=== PATIENT | male | born 1965 | race Two or more races ===

== ENCOUNTER 2017-10-02 11:03 | Outpatient (CLI) | payer OTHER ==
[~2017-10-02 11:03] MED LIST: ACETAMINOPHEN-1 EAC2 PO; BUTALB-ACETAMI1 EACH; DEPAKOTE ER500 MG; FLAGYL375 MG; FOLIC ACID0.4 MG; HUMIRA40 MG/0.1; OSEL75CA PO; Q-PAP EXTRA ST500 MG; SYNTHROID200 MCG; SYNTHROID50 MCG; VITAMIN B-121000 MCG; ZYRTEC10 MG
== END 2017-10-02 15:00 | disposition home or self-care (01) ==
LOC: MRI 11:03
DX: M17.0 Bilateral primary osteoarthritis of knee (principal)
CPT/HCPCS: 73721

== ENCOUNTER 2017-11-03 12:16 | Outpatient (CLI) | payer OTHER | END 2017-11-03 13:00 | disposition home or self-care (01) | LOC: NUCLEAR 12:16 | DX: I70.211 Atherosclerosis of native arteries of extremities with intermittent claudication, right leg (principal); I70.212 Atherosclerosis of native arteries of extremities with intermittent claudication, left leg ==

== ENCOUNTER 2017-11-04 11:47 | Outpatient (CLI) | payer OTHER | END 2017-11-04 12:30 | disposition home or self-care (01) | LOC: NUCLEAR 11:47 | DX: I73.9 Peripheral vascular disease, unspecified (principal); I87.2 Venous insufficiency (chronic) (peripheral) ==

== ENCOUNTER 2017-11-13 09:33 | Outpatient (CLI) | payer OTHER | END 2017-11-13 09:44 | disposition home or self-care (01) | LOC: TOM 09:33 | DX: K50.00 Crohn's disease of small intestine without complications (principal) | CPT/HCPCS: 74178; Q9965 ==

== ENCOUNTER → 2018-04-02 | Outpatient (CLI) | payer OTHER | END | disposition home or self-care (01) | LOC: MAMO-SONO 10:15 → SONOGRAMA 11:48 → MAMO-SONO 04-08 10:15 | DX: C73 Malignant neoplasm of thyroid gland (principal) ==

== ENCOUNTER 2018-04-20 14:16 | Outpatient (CLI) | payer OTHER | END 2018-04-20 14:27 | disposition home or self-care (01) | LOC: RAD 14:16 | DX: M21.41 Flat foot [pes planus] (acquired), right foot (principal); M21.42 Flat foot [pes planus] (acquired), left foot ==

== ENCOUNTER 2019-04-14 13:42 | Outpatient (CLI) | payer OTHER | END 2019-04-14 13:51 | disposition home or self-care (01) | LOC: SONOGRAMA 13:42 | DX: C73 Malignant neoplasm of thyroid gland (principal) ==

== ENCOUNTER → 2020-08-21 | Outpatient (CLI) | payer OTHER | END | disposition home or self-care (01) | LOC: RAD 11:47 | PROVIDERS: ATTEND Internal Medicine Gastroenterology | DX: R05 Cough (principal) ==

== ENCOUNTER 2020-12-06 06:25 | Day surgery (SDC) | payer OTHER | END 2020-12-06 10:55 | disposition home or self-care (01) | LOC: CIR.AMB 06:25 | PROVIDERS: ATTEND Internal Medicine Gastroenterology | DX: K62.4 Stenosis of anus and rectum (principal); Z20.822 Contact with and (suspected) exposure to COVID-19 ==

== ENCOUNTER 2021-03-14 08:00 | Outpatient (CLI) | payer OTHER | END 2021-03-14 08:30 | disposition home or self-care (01) | LOC: PPH VACUNA 08:00 | DX: Z23 Encounter for immunization (principal) ==

== ENCOUNTER 2021-04-04 07:00 | Outpatient (CLI) | payer OTHER | END 2021-04-04 07:05 | disposition home or self-care (01) | LOC: PPH VACUNA 07:00 | PROVIDERS: ATTEND Emergency Medicine Pediatric Emergency Medicine | DX: Z23 Encounter for immunization (principal) ==

== ENCOUNTER → 2021-06-11 | Outpatient (CLI) | payer OTHER | END | disposition home or self-care (01) | LOC: SONOGRAMA 12:49 | PROVIDERS: ATTEND Internal Medicine Sports Medicine | DX: C73 Malignant neoplasm of thyroid gland (principal) ==

== ENCOUNTER 2021-08-20 14:47 | Outpatient (CLI) | payer OTHER | END 2021-08-20 14:51 | disposition home or self-care (01) | LOC: RAD 14:47 | PROVIDERS: ATTEND Internal Medicine Hematology & Oncology | DX: I10 Essential (primary) hypertension (principal) ==

== ENCOUNTER 2021-10-03 08:00 | Outpatient (CLI) | payer OTHER | END 2021-10-03 08:30 | disposition home or self-care (01) | LOC: PPH VACUNA 08:00 | PROVIDERS: ATTEND Emergency Medicine Pediatric Emergency Medicine | DX: Z23 Encounter for immunization (principal) ==

== ENCOUNTER 2022-11-05 06:48 | Day surgery (SDC) | payer OTHER | END 2022-11-05 11:25 | disposition home or self-care (01) | LOC: AMB-ENDOS 06:48 → CIR.AMB 06:48 → AMB-ENDOS 11:25 → CIR.AMB 14:00 | PROVIDERS: ATTEND Internal Medicine Gastroenterology | DX: K50.011 Crohn's disease of small intestine with rectal bleeding (principal); K50.013 Crohn's disease of small intestine with fistula; K52.89 Other specified noninfective gastroenteritis and colitis; K62.5 Hemorrhage of anus and rectum; Z88.6 Allergy status to analgesic agent ==

== ENCOUNTER 2023-06-16 14:39 | Outpatient (CLI) | payer OTHER | END 2023-06-16 14:44 | disposition home or self-care (01) | LOC: RAD 14:39 | PROVIDERS: ATTEND Psychiatry & Neurology Clinical Neurophysiology | DX: S82.002A Unspecified fracture of left patella, initial encounter for closed fracture (principal); Z88.6 Allergy status to analgesic agent ==

== ENCOUNTER 2024-01-16 14:35 | Inpatient (IN) | payer OTHER ==
[~2024-01-16] VITALS: Ht 175.3 cm; Wt 65.8 kg
[~2024-01-16 14:35] MED LIST changes: +INTEGRA PLUS C1 EACH PO; +PREDNISONE10 M2 PO; +TRAM1TAB98 PO; +VITAMIN B-121000 MC2 SL
--- NOTE | 2024-01-16 14:42 | NUR ---
SE RECIBE PACIENTE ALERTA Y ORIENTADO X3 EN COMPANIA DE FAMILIAR LA CUAL REFIERE QUE VIENE CON PTE A CAUSA DE QUE MAHER ESTADO PRESENTANDO EDEMA EN EXTREMDADES INFERIORES Y ENROJECIMIENTO EN RODILAS.
[2024-01-16] MEDS ORDERED: CEFTRIAXONE SODIUM 1,000 MG VIAL IV ONE (16:30)
[2024-01-16] MEDS ORDERED: 0.9 % SODIUM CHLORIDE 1,000 ML IV SCH ×2 (16:30→19:45)
--- NOTE | 2024-01-16 16:38 | NUR ---
PTE EVALUADO POR DR. OWENS QUIEN [place] MEDICO. GARY STYLES ORIENTA A PTE SOBRE EL MISMO, GODFREY REFIERE ENTENDER. SE COLECTAN MUESTRAS DE LAB Y SE CANALIZA BAJO MEDIDAS ASEPTICAS COL[place] H/L. SE COLOCAN IV FLUIDS Y SE ADMINISTRAN MEDICAMENTOS LEVI ORDEN MEDICA.
[2024-01-16 17:40] LABS: ERYTHROCYTE SEDIMENTATION RATE > 130 mm/hr
[2024-01-16 17:41] LABS: HEMATOCRIT 29.3 % (39.0-48.0); HEMOGLOBIN 9.3 g/dL (13-16.00); MEAN CELL VOLUME 86.4 fL (80.0-100.00); MEAN CORPUSCULAR HEMOGLOBIN 27.4 pg (27.00-32.0); MEAN CORPUSCULAR HGB CONC 31.7 g/dl (32.0-36.0); PLATELET COUNT 576 K/uL (150-450); RED BLOOD COUNT 3.39 M/uL (4.00-6.00)
[2024-01-16 17:59] LABS: ALBUMIN 2.3 gm/dL (3.4-5.0); BILIRUBIN TOTAL 0.28 mg/dL (0.3-1.2); CREATININE SERUM 0.65 mg/dL (0.70-1.30); GFR 126.17; GLOBULINA 5.1 G/DL (2.4-3.5); POTASSIUM 3.84 mEq/L (3.5-5.1); TOTAL PROTEIN 7.4 gm/dL (6.4-8.2)
[2024-01-16 18:00] LABS: C-REACTIVE PROTEIN 12.5 MG/DL (0.00-0.29)
[2024-01-16] MEDS ORDERED: VANCOMYCIN HCL 1,000 MG VIAL IV SCH (19:53)
[2024-01-16] MEDS ORDERED: GABAPENTIN 400 MG CAPSULE PO SCH (19:59)
[2024-01-16] MEDS ORDERED: DIVALPROEX SODIUM 500 MG TABLET.DR PO SCH (19:59)
[2024-01-16] MEDS ORDERED: ACETAMINOPHEN 500 MG GEL..CAP PO PRN (20:00)
[2024-01-16] MEDS ORDERED: ONDANSETRON HCL 4 MG in 0.9 % SODIUM CHLORIDE 50 ML IV PRN (20:00)
[2024-01-16] MEDS ORDERED: RINGERS SOLUTION,LACTATED 1,000 ML IV STA (21:01)
[2024-01-16 21:51] LABS: INR 1.09; PARTIAL THROMBOPLASTIN TIME 32.7 SECONDS (22.0-34.0); PROTHROMBIN TIME 11.4 SECONDS (9.0-11.5)
[2024-01-16 23:16] LABS: URINE APPEARANCE Clear; URINE BILIRRUBIN Negative (NEGATIVE); URINE BLOOD Negative; URINE COLOR Yellow; URINE GLUCOSE Negative (NEGATIVE); URINE LEUKOCYTE Negative; URINE NITRATE Negative; URINE PROTEIN Negative (NEGATIVE)
[2024-01-16 23:19] LABS: URINE WBC 3.3 uL (0.0-23.2)
[2024-01-16 23:20] LABS: URINE BACTERIA 1.2 uL (0.0-1933); URINE EPITHELIAL CELLS 1.3 uL (0.0-38.8)
[2024-01-17] MEDS ORDERED: LEVOTHYROXINE SODIUM 175 MCG TABLET PO SCH (06:00)
[2024-01-17] MEDS ORDERED: IRON FUM,PS/FOLIC/BCOMP,C NO.9 1 CAP CAPSULE PO SCH (09:00)
[2024-01-17] MEDS ORDERED: CEFTRIAXONE SODIUM 2,000 MG in 0.9 % SODIUM CHLORIDE 100 ML IV SCH (09:00)
[2024-01-17] MEDS ORDERED: PANTOPRAZOLE SODIUM 40 MG/VIAL VIAL IV SCH (09:00)
[2024-01-17] MEDS ORDERED: ENOXAPARIN SODIUM 40 MG/0.4 ML SYRINGE SUBCUTANEO SCH (09:00)
[2024-01-17] MEDS ORDERED: AMINO ACIDS 1 EACH TABLET PO SCH (09:00)
[2024-01-19 08:41] LABS: HEMATOCRIT 24.4 % (39.0-48.0); MEAN CELL VOLUME 84.9 fL (80.0-100.00); MEAN CORPUSCULAR HGB CONC 31.8 g/dl (32.0-36.0); PLATELET COUNT 426 K/uL (150-450); RED BLOOD COUNT 2.88 M/uL (4.00-6.00); RED CELL DISTRIBUTION WIDTH 17.2 % (11.5-14.5)
[2024-01-19 09:02] LABS: ALBUMIN 1.8 gm/dL (3.4-5.0); BILIRUBIN TOTAL 0.22 mg/dL (0.3-1.2); CALCIUM 8.1 mg/dL (8.5-10.1); CREATININE SERUM 0.51 mg/dL (0.70-1.30); GFR 166.92; GLOBULINA 3.5 G/DL (2.4-3.5); MAGNESIUM 1.9 mg/dL (1.8-2.4); PHOSPHOROUS 3.4 mg/dL (2.5-4.9); POTASSIUM 3.8 mEq/L (3.5-5.1); TOTAL PROTEIN 5.3 gm/dL (6.4-8.2)
[2024-01-19 11:40] LABS: HEMOGLOBIN 7.8 g/dL (13-16.00)
[2024-01-19] MEDS ORDERED: FUROsemide 20 MG/2 ML VIAL IV PRN (12:30)
[2024-01-19] MEDS ORDERED: Cyanocobalamin/Mecobalamin 1 TAB.SL SL SCH (17:00)
[2024-01-19] MEDS ORDERED: METHYLPREDNISOLONE SOD SUCC 40 MG VIAL IV SCH (21:00)
[2024-01-20 02:51] LABS: FECAL LEUKOCYTES POSITIVE (NEGATIVE)
[2024-01-20] MEDS ORDERED: DIATRIZOATE MEGLUMINE, SODIUM 30 ML BOTTLE PO NR (07:15)
[2024-01-20] MEDS ORDERED: SOD FERRIC GLUC COMPLX/SUCROSE 62.5 MG in 0.9 % SODIUM CHLORIDE 50 ML IV SCH (09:00)
[2024-01-20 21:19] LABS: HEMATOCRIT 31.9 % (39.0-48.0); HEMOGLOBIN 10.3 g/dL (13-16.00); MEAN CELL VOLUME 83.5 fL (80.0-100.00); MEAN CORPUSCULAR HEMOGLOBIN 26.9 pg (27.00-32.0); MEAN CORPUSCULAR HGB CONC 32.3 g/dl (32.0-36.0); PLATELET COUNT 408 K/uL (150-450); RED BLOOD COUNT 3.82 M/uL (4.00-6.00); RED CELL DISTRIBUTION WIDTH 17.4 % (11.5-14.5)
[2024-01-21 07:32] LABS: HEMATOCRIT 32.1 % (39.0-48.0); HEMOGLOBIN 10.6 g/dL (13-16.00); MEAN CELL VOLUME 82.6 fL (80.0-100.00); MEAN CORPUSCULAR HEMOGLOBIN 27.3 pg (27.00-32.0); PLATELET COUNT 425 K/uL (150-450); RED BLOOD COUNT 3.89 M/uL (4.00-6.00); RED CELL DISTRIBUTION WIDTH 17.4 % (11.5-14.5)
[2024-01-21 08:33] LABS: ALBUMIN 1.9 gm/dL (3.4-5.0); ALKALINE PHOSPHATASE 51 U/L (50-136); ALT/SGPT 10 U/L (12-78); BILIRUBIN TOTAL 0.23 mg/dL (0.3-1.2); BLOOD UREA NITROGEN 8 mg/dL (7-18); BUN CREA RATIO 18 (7.0-25.0); CALCIUM 8.6 mg/dL (8.5-10.1); CARBON DIOXIDE 31 mEq/L (21-32); CHLORIDE 110 mmol/L (98-107); CHOL HDL RATIO 2.6 (0-5.0); CHOLESTEROL 144 mg/dL (0-200); CREATININE SERUM 0.44 mg/dL (0.70-1.30); GFR 197.93; GLOBULINA 4.2 G/DL (2.4-3.5); GLUCOSE FASTING 121 mg/dL (65-100); HDL 55 mg/dl (40-60); LDL 74 mg/dl (0-130); OSMOLALITY SERUM 272 MOSM/KG (275-295); PHOSPHOROUS 4.2 mg/dL (2.5-4.9); POTASSIUM 4.12 mEq/L (3.5-5.1); SODIUM 136 mmol/L (136-145); TOTAL PROTEIN 6.1 gm/dL (6.4-8.2); TRIGLYCERIDES 75 mg/dL (0-150); TSH 0.358 uIU/mL (0.358-3.74); VLDL 15 (0-39)
[2024-01-21 08:44] LABS: AST/SGOT < 3 U/L (15-37)
[2024-01-22] MEDS ORDERED: PANTOPRAZOLE SODIUM 40 MG TABLET.DR PO SCH (09:00)
[2024-01-23 09:27] LABS: HEMATOCRIT 33.7 % (39.0-48.0); HEMOGLOBIN 10.9 g/dL (13-16.00); MEAN CELL VOLUME 86.1 fL (80.0-100.00); MEAN CORPUSCULAR HEMOGLOBIN 27.9 pg (27.00-32.0); MEAN CORPUSCULAR HGB CONC 32.4 g/dl (32.0-36.0); PLATELET COUNT 385 K/uL (150-450); RED BLOOD COUNT 3.91 M/uL (4.00-6.00); RED CELL DISTRIBUTION WIDTH 17.5 % (11.5-14.5)
[2024-01-23 10:05] LABS: ALBUMIN 2.2 gm/dL (3.4-5.0); BILIRUBIN TOTAL 0.2 mg/dL (0.3-1.2); CALCIUM 8.8 mg/dL (8.5-10.1); CREATININE SERUM 0.48 mg/dL (0.70-1.30); GFR 179.02; GLOBULINA 4.3 G/DL (2.4-3.5); PHOSPHOROUS 3.4 mg/dL (2.5-4.9); POTASSIUM 4.4 mEq/L (3.5-5.1); TOTAL PROTEIN 6.5 gm/dL (6.4-8.2)
[2024-01-24] MEDS ORDERED: ENOXAPARIN SODIUM 40 MG/0.4 ML SYRINGE SUBCUTANEO SCH (09:00)
[2024-01-24] MEDS ORDERED: SIMETHICONE 125 MG CAPSULE PO SCH (13:00)
[2024-01-25 10:30] LABS: ERYTHROCYTE SEDIMENTATION RATE 42 mm/hr; HEMATOCRIT 33.4 % (39.0-48.0); HEMOGLOBIN 10.7 g/dL (13-16.00); MEAN CELL VOLUME 86.3 fL (80.0-100.00); MEAN CORPUSCULAR HEMOGLOBIN 27.7 pg (27.00-32.0); MEAN CORPUSCULAR HGB CONC 32.1 g/dl (32.0-36.0); PLATELET COUNT 318 K/uL (150-450); RED BLOOD COUNT 3.87 M/uL (4.00-6.00); RED CELL DISTRIBUTION WIDTH 17.4 % (11.5-14.5)
[2024-01-25 11:03] LABS: BILIRUBIN TOTAL 0.12 mg/dL (0.3-1.2); CALCIUM 8.5 mg/dL (8.5-10.1); CREATININE SERUM 0.56 mg/dL (0.70-1.30); GFR 149.85; MAGNESIUM 1.8 mg/dL (1.8-2.4); POTASSIUM 4.39 mEq/L (3.5-5.1)
[2024-01-25 11:26] LABS: C-REACTIVE PROTEIN 1.69 MG/DL (0.00-0.29)
[2024-01-25] MEDS ORDERED: PREDNISONE 20 MG TABLET PO SCH (12:00)
[2024-01-26] MEDS ORDERED: INTEGRA PLUS C1 EACH PO (11:12)
[2024-01-26] MEDS ORDERED: NEURONTIN300 MG PO (11:13)
[2024-01-26] MEDS ORDERED: DIVALPROEX SOD500 MG PO (11:13)
[2024-01-26] MEDS ORDERED: PREDNISONE20 MG PO (11:14)
[2024-01-26] MEDS ORDERED: LEVOTHYROXINE175 MCG PO (11:14)
[2024-01-26] MEDS ORDERED: VITAMIN B-121000 MC2 SL (11:15)
== END 2024-01-26 16:47 | disposition home or self-care (01) | DRG 603 ==
LOC: ER 14:36 → SEC-K 20:16 → SURH 21:50 → SEC-K 21:53 → SURG 01-17 00:33 → SEC-K 01-17 00:49 → SURH 01-17 15:06
PROVIDERS: General Practice; Internal Medicine; Internal Medicine Gastroenterology; ADMIT Internal Medicine; ATTEND Internal Medicine
PROC: B54DZZZ Ultrasonography of Bilateral Lower Extremity Veins (ICD-10-PCS; principal; 2024-01-17)
PROC: BW21YZZ Computerized Tomography (CT Scan) of Abdomen and Pelvis using Other Contrast (ICD-10-PCS; 2024-01-20)
PROC: 30233N1 Transfusion of Nonautologous Red Blood Cells into Peripheral Vein, Percutaneous Approach (ICD-10-PCS; 2024-01-20)
DX: L03.115 Cellulitis of right lower limb (principal); K50.018 Crohn's disease of small intestine with other complication; D64.9 Anemia, unspecified; I87.2 Venous insufficiency (chronic) (peripheral); E03.8 Other specified hypothyroidism